=== PATIENT | female | born 1975 | race Caucasian/White ===

== ENCOUNTER 2023-03-26 09:32 | Outpatient (OUT) | payer BC, SELFPAY ==
[2023-03-26 11:48] LABS: Basophils Percent Auto 0.4 % (0.2-2.0); Eosinophils Absolute Auto 0.1 10^3/uL (0.0-0.7); Eosinophils Percent Auto 1.3 % (0.9-7.0); Hemoglobin 15.5 g/dL (12.0-16.0); Immature Granulocytes Abs Auto 0.03 10^3/uL (0.00-0.03); Immature Granulocytes Pct Auto 0.4 % (0.0-0.5); Lymphocytes Absolute Auto 2.3 10^3/uL (1.2-3.8); Lymphocytes Percent Auto 28.4 % (20.5-60.0); Mean Corpuscular Hemoglobin 30.7 pg (26.7-34.0); Mean Corpuscular Volume 93.1 fL (81.0-99.0); Mean Platelet Volume 11.2 fL (9.5-13.5); Monocytes Absolute Auto 0.5 10^3/uL (0.3-0.8); Monocytes Percent Auto 5.5 % (1.7-12.0); Neutrophils Absolute Auto 5.3 10^3/uL (1.4-6.5); Platelet Count 250 10^3/uL (150-450); Red Blood Count 5.05 10^6/uL (4.20-5.40); Red Cell Distribution Width 13.8 % (11.0-15.0); White Blood Count 8.2 10^3/uL (4.0-11.0)
[2023-03-26 12:30] LABS: Alanine Aminotransferase 29 U/L (14-59); Albumin Globulin Ratio 0.9; Albumin Level 3.5 g/dL (3.4-5.0); Alkaline Phosphatase 82 U/L (46-116); Anion Gap 9.1; Aspartate Amino Transferase 17 U/L (15-37); BUN Creatinine Ratio 13.3; Bilirubin Total 0.3 mg/dL (0.2-1.0); Calcium 8.8 mg/dL (8.5-10.1); Carbon Dioxide 29.1 mmol/L (21.0-32.0); Chloride 105 mmol/L (98-107); Estimated GFR (African America >60 (>=60); Estimated GFR (Non-African Ame >60 (>=60); Globulin 3.7 g/dL; Glucose 90 mg/dL (74-106); Potassium 4.2 mmol/L (3.5-5.1); Sodium 139 mmol/L (136-145); Thyroid Stimulating Hormone 1.848 uIU/mL (0.358-3.740); Total Protein 7.2 g/dL (6.4-8.2)
[2023-03-27 14:08] LABS: Thyroglobulin Antibody <1.0 IU/mL (0.0-0.9); Thyroid Peroxidase (TPO) Ab <9 IU/mL (0-34)
== END 2023-03-26 09:33 | disposition home or self-care (01) ==
PROVIDERS: PCP Family Medicine; Visit Provider Family Medicine
DX: D64.9 Anemia, unspecified (principal); E01.0 Iodine-deficiency related diffuse (endemic) goiter; R49.0 Dysphonia
CPT/HCPCS: 36415; 80053; 84436; 84443; 85025; 86376; 86800

== ENCOUNTER 2023-03-29 11:15 | Outpatient (OUT) | payer BC, SELFPAY ==
--- NOTE | 2023-03-29 11:18 | US_ITS ---
The [address] [address] Patient Name: NASEEM CARR MRN: [id number] date: 1975 Sex: F Assigned Patient Location: US Current Patient Location: Accession/Order Number: [id number] Exam Date: 03/29/2023 11:20 Report Date: 03/30/2023 07:41 At the request of: SHO CHAVARRIA Procedure: US thyroid EXAM: Thyroid ultrasound CLINICAL INDICATION: Thyromegaly. COMPARISON: None TECHNIQUE: US of the thyroid gland was performed using a small parts transducer. Color flow vascular imaging was also done FINDINGS: Right lobe of the thyroid gland measures 5.4 cm in greatest length. Echogenicity and vascularity within the right lobe is normal. No thyroid nodules evident. Left lobe of the thyroid gland measures 4.8 cm in greatest length. Echogenicity and vascularity is normal Cystic left thyroid nodule measuring 0.4 x 0.3 x 0.3 cm. The isthmus measures 4 mm in the midline. Echogenicity within the isthmus is normal. IMPRESSION: No thyroid nodules that meet criteria for ultrasound follow-up or FNA. Electronically authenticated by: LEVI MITTAL Date: 03/30/2023 07:41
== END 2023-03-29 11:16 | disposition home or self-care (01) ==
LOC: US 11:15
PROVIDERS: PCP Family Medicine; Visit Provider Family Medicine
DX: E01.0 Iodine-deficiency related diffuse (endemic) goiter (principal)
CPT/HCPCS: 76536